=== PATIENT | female | born 1980 | race American Indian/Alaskan Native ===

== ENCOUNTER 2021-01-20 02:58 | Emergency (ER) | payer MEDICAID ==
[2021-01-20 03:17] VITALS: BP 164/105
--- NOTE | 2021-01-20 04:36 | Emergency Department Report ---
ED ENT HPI - General Chief complaint: Dental/Oral Stated complaint: TOOTHCARE Time Seen by Provider: 01/20/21 04:19 Source: patient Mode of arrival: Ambulatory Limitations: No Limitations - History of Present Illness Initial comments: 40-year-old -[place] female with history of rheumatoid arthritis which been chronically affecting her dentition presents emerged department complaining of a reemergence of dental pain erythema and swelling given the suspicion of having an infectious process. Ports no fever, chills, sweats but pain is worse when she chews or or touches the area she reports having some further dental erosion and some fractures does not know the pain and swelling. Ports no nausea, no vomiting MD complaint: tooth pain -: Sudden, days(s) (Few days acute on chronic pain) Location: tooth # (But primarily to the right upper bicuspid tooth #4) Severity: mild, moderate Quality: dull Consistency: constant Improves with: none Worsens with: none Associated Symptoms: toothache. denies: pain with swallowing, sore throat, tinnitus, discharge from ear, rhinorrhea - Related Data Previous Rx's Medication Instructions Recorded Last Taken Type Amoxicillin [Amoxicillin TAB] 875 mg PO BID #20 tablet 01/20/21 Unknown Rx Chlorhexidine Gluconate [Hibiclens] 10 ml TP BID #240 liquid 01/20/21 Unknown Rx Lidocaine Viscous 2% 5 ml MM Q3H PRN #120 udc 01/20/21 Unknown Rx traMADoL [Ultram] 50 mg PO Q6HR PRN #20 tablet 01/20/21 Unknown Rx ED Dental HPI - General Chief complaint: Dental/Oral Stated complaint: TOOTHCARE Time Seen by Provider: 01/20/21 04:19 Source: patient Mode of arrival: Ambulatory Limitations: No Limitations - Related Data Previous Rx's Medication Instructions Recorded Last Taken Type Amoxicillin [Amoxicillin TAB] 875 mg PO BID #20 tablet 01/20/21 Unknown Rx Chlorhexidine Gluconate [Hibiclens] 10 ml TP BID #240 liquid 01/20/21 Unknown Rx Lidocaine Viscous 2% 5 ml MM Q3H PRN #120 udc 01/20/21 Unknown Rx traMADoL [Ultram] 50 mg PO Q6HR PRN #20 tablet 01/20/21 Unknown Rx ED Review of Systems ROS: Stated complaint: TOOTHCARE Other details as noted in HPI Comment: All other systems reviewed and negative ED Past Medical Hx - Past Medical History Previous Medical History?: Yes Hx Hypertension: Yes Hx Diabetes: Yes Hx Arthritis: Yes Hx Asthma: Yes - Surgical History Past Surgical History?: Yes Additional Surgical History: C-sec X 3, tubaligation, hernia repair X5 - Social History Smoking Status: Current Every Day Smoker Substance Use Type: None - Medications Home Medications: Home Medications Medication Instructions Recorded Confirmed Last Taken Type Amoxicillin [Amoxicillin TAB] 875 mg PO BID #20 tablet 01/20/21 Unknown Rx Chlorhexidine Gluconate [Hibiclens] 10 ml TP BID #240 liquid 01/20/21 Unknown Rx Lidocaine Viscous 2% 5 ml MM Q3H PRN #120 udc 01/20/21 Unknown Rx traMADoL [Ultram] 50 mg PO Q6HR PRN #20 tablet 01/20/21 Unknown Rx ED Physical Exam - General Limitations: No Limitations General appearance: alert, in no apparent distress - Head Head exam: Present: atraumatic, normocephalic - Eye Eye exam: Present: normal appearance, PERRL, EOMI Pupils: Present: normal accommodation - ENT ENT exam: Present: normal exam, mucous membranes moist, TM's normal bilaterally - Neck Neck exam: Present: normal inspection, full ROM. Absent: tenderness, meningismus, lymphadenopathy - Respiratory Respiratory exam: Present: normal lung sounds bilaterally. Absent: respiratory distress, wheezes, rales, chest wall tenderness, accessory muscle use - Cardiovascular Cardiovascular Exam: Present: regular rate, normal rhythm, normal heart sounds. Absent: bradycardia, systolic murmur, diastolic murmur, rubs, gallop - GI/Abdominal GI/Abdominal exam: Present: soft, normal bowel sounds. Absent: tenderness, guarding, hyperactive bowel sounds, hypoactive bowel sounds - Extremities Exam Extremities exam: Present: normal inspection - Back Exam Back exam: Present: normal inspection. Absent: CVA tenderness (R), CVA tenderness (L) - Neurological Exam Neurological exam: Present: alert, oriented X3, CN II-XII intact - Psychiatric Psychiatric exam: Present: normal affect, normal mood, anxious, manic - Skin Skin exam: Present: warm, dry, intact, normal color. Absent: rash ED Course Vital Signs 01/20/21 03:12 Temperature 98.3 F Pulse Rate 108 H Respiratory 18 Rate Blood Pressure 164/105 O2 Sat by Pulse 97 Oximetry Critical care attestation.: If time is entered above; I have spent that time in minutes in the direct care of this critically ill patient, excluding procedure time. ED Disposition Clinical Impression: Dentalgia, Infected dental caries Disposition: TO HOME OR SELFCARE Is pt being admited?: No Does the pt Need Aspirin: No Condition: Stable Instructions: Preventive Dental Care, Adult, Acute Pain, Adult Prescriptions: Amoxicillin [Amoxicillin TAB] 875 mg PO BID #20 tablet Chlorhexidine Gluconate [Hibiclens] 10 ml TP BID #240 liquid Lidocaine Viscous 2% 5 ml MM Q3H PRN #120 udc PRN Reason: Pain, Moderate (4-6) traMADoL [Ultram] 50 mg PO Q6HR PRN #20 tablet PRN Reason: Pain Referrals: PRIMARY CARE, [Primary Care Provider] - 3-5 Days [facility] [Provider Group] - 3-5 Days [facility] [Outside] - 3-5 Days
[2021-01-20] MEDS ORDERED: traMADol 50 MG TAB PO ONE (04:48)
== END 2021-01-20 04:55 | disposition home or self-care (01) ==
LOC: ED 02:58
DX: K02.9 Dental caries, unspecified (principal); K08.89 Other specified disorders of teeth and supporting structures; I10 Essential (primary) hypertension; E11.9 Type 2 diabetes mellitus without complications; M19.91 Primary osteoarthritis, unspecified site; J45.909 Unspecified asthma, uncomplicated; F17.200 Nicotine dependence, unspecified, uncomplicated; Z98.51 Tubal ligation status; Z98.890 Other specified postprocedural states; Z79.2 Long term (current) use of antibiotics; Z79.899 Other long term (current) drug therapy
CPT/HCPCS: 99282